=== PATIENT | male | born 1955 | race Caucasian/White ===

== ENCOUNTER 2024-08-24 06:28 | Day surgery (SDC) | payer MEDICARE, OTHER, SELFPAY ==
[2024-08-24 08:42] VITALS: BMI 49.3
[2024-08-24 08:44] VITALS: BMI 49.3
[2024-08-24 08:45] VITALS: BP 157/75
[2024-08-24] MEDS: ALCAINE 0.5% EYE DROPS 3 DROP OPHTH (08:46)
[2024-08-24] MEDS: PRED FORTE 1% EYE DROPS 3 DROP OPHTH (08:47)
[2024-08-24] MEDS: NEO-SYNEPHRINE 2.5% OPH SOL. 3 DROP OPHTH (08:48)
[2024-08-24] MEDS: POLYTRIM OPHTHALMIC SOLUTION 3 DROP OPHTH (08:48)
[2024-08-24] MEDS: MYDRIACYL 3 DROP OPHTH (08:48)
[2024-08-24] MEDS: ACUVAIL 3 DROPS OPHTH (08:49)
[2024-08-24] MEDS: CYCLOGYL 1% EYE DROPS 3 DROP OPHTH (08:49)
[2024-08-24] MEDS: AKTEN OPHTHALMIC GEL 1 ML OPHTH (08:50)
[2024-08-24] MEDS: NORMOSOL-R/PLASMALYTE-A 1000 IV (08:54)
[2024-08-24 08:57] LABS: Glucose - Point of Care 102 mg/dl (70-99)
[2024-08-24 09:55] VITALS: BP 169/76
== END 2024-08-24 10:16 | disposition home or self-care (01) ==
LOC: SDS 06:28
PROVIDERS: ATTENDING PHYSICIAN Ophthalmology
DX: H25.812 Combined forms of age-related cataract, left eye (principal)
CPT/HCPCS: 66984; 82962; V2632

== ENCOUNTER 2024-09-07 06:26 | Day surgery (SDC) | payer MEDICARE, OTHER, SELFPAY ==
[2024-09-07] MEDS: ALCAINE 0.5% EYE DROPS 4 DROP OPHTH (08:58)
[2024-09-07] MEDS: AKTEN OPHTHALMIC GEL 1 ML OPHTH (09:00)
[2024-09-07 09:03] VITALS: BMI 48.4
[2024-09-07 09:04] VITALS: BMI 48.4
[2024-09-07] MEDS: POLYTRIM OPHTHALMIC SOLUTION 3 DROP OPHTH (09:06)
[2024-09-07] MEDS: ACUVAIL 3 DROPS OPHTH (09:06)
[2024-09-07] MEDS: MYDRIACYL 3 DROP OPHTH (09:07)
[2024-09-07] MEDS: PRED FORTE 1% EYE DROPS 3 DROP OPHTH (09:07)
[2024-09-07] MEDS: NEO-SYNEPHRINE 2.5% OPH SOL. 3 DROP OPHTH (09:08)
[2024-09-07] MEDS: CYCLOGYL 1% EYE DROPS 3 DROP OPHTH (09:08)
[2024-09-07] MEDS: NORMOSOL-R/PLASMALYTE-A 1000 IV (09:11)
[2024-09-07 09:18] LABS: Glucose - Point of Care 94 mg/dl (70-99)
[2024-09-07 09:22] VITALS: BP 164/73
[2024-09-07 10:10] VITALS: BP 166/71
== END 2024-09-07 10:35 | disposition home or self-care (01) ==
LOC: SDS 06:26
PROVIDERS: ATTENDING PHYSICIAN Ophthalmology
DX: H25.811 Combined forms of age-related cataract, right eye (principal); H26.9 Unspecified cataract
CPT/HCPCS: 66984; 82962